=== PATIENT | male | born 1980 | race Caucasian/White ===

== ENCOUNTER → 2018-07-09 | Emergency (ER) | payer OTHER ==
[~2018-07-09] VITALS: Ht 172.7 cm; Wt 103.4 kg
== END | disposition home or self-care (01) ==
LOC: ER 17:19 → EDBD 18:34 → ER 18:34
DX: K52.89 Other specified noninfective gastroenteritis and colitis (principal); E86.0 Dehydration

== ENCOUNTER 2018-07-15 12:11 | Emergency (ER) | payer OTHER ==
[~2018-07-15] VITALS: Ht 172.7 cm; Wt 103.4 kg
== END 2018-07-15 17:38 | disposition home or self-care (01) ==
LOC: ER 12:11
DX: R19.7 Diarrhea, unspecified (principal); M10.071 Idiopathic gout, right ankle and foot